=== PATIENT | female | born 1975 | race Caucasian/White ===

== ENCOUNTER 2019-04-14 08:13 | Day surgery (SDC) | payer OTHER, BC ==
[2019-04-14] VITALS (14 sets, daily range): BP systolic 106–123; BP diastolic 57–71; PULSE 52–72; RESP 13–19; Ht 162.6 cm; Wt 72.6 kg
[~2019-04-14] VITALS: Ht 162.6 cm; Wt 72.6 kg
--- NOTE | 2019-04-14 06:57 | HPN ---
Date/Time of Note Date/Time of Note DATE: 04/14/19 TIME: 06:57 Interval H&P Admission Note Pt. seen H&P reviewed: No system changes LILLIE SHAIRF MD Apr 14, 2019 06:57
--- NOTE | 2019-04-14 10:04 | PREAC ---
Date/Time of Note Date/Time of Note DATE: 04/14/19 TIME: 10:04 Anesthesia Eval and Record Evaluation Time Pre-Procedure Interview DATE: 04/14/19 TIME: 10:04 Age 43 Sex female NPO: 8 hrs Preoperative diagnosis cholelithiasis Planned procedure laparoscopic cholecystectomy Past Medical History Past Medical History: None Surgery & Anesthesia Issues No known issue Meds Anticoagulation: No Beta Santos within 24 hr: No Reason Beta Santos not given: Pt. not on B-Santos No Active Prescriptions or Reported Meds Meds reviewed: Yes Allergies Coded Allergies: morphine (Verified Allergy, Unknown, SHORTNESS OF BREATH, 04/14/19) Allergies Reviewed: Yes Labs/Studies Labs Reviewed: Reviewed by anesthesiologist test: Negative Studies: ECG Pre-procedure Exam Last vitals Vital Signs Date Temp Pulse Resp B/P (MAP) Pulse Ox O2 O2 Flow FiO2 Time Delivery Rate 04/14/19 97.3 54 16 117/57 100 Room Air 09:33 (77) Airway: Adequate mouth opening, Adequate thyromental dist Mallampati: Mallampati II Teeth: Normal Lung: Normal Heart: Normal ASA Physical Status ASA physical status: 1 Emergency: None Planned Anesthetic General/MAC: ETT Nerve block: TAP (bilateral) Planned Pain Management Single shot nerve block, Parenteral pain med Pre-operative Attestations Prior to commencing anesthesia and surgery, the patient was re-evaluated, there was verification of: *The patient's identity *The results of appropriate recent lab work and preoperative vital signs *The above evaluation not changing prior to induction *Anesthetic plan, risk benefits, alternative and complications discussed with patient/family; questions answered; patient/family understands, accepts and wishes to proceed. Computer Applications Instructor used ILEANA ONTIVEROS MD Apr 14, 2019 10:04
[2019-04-14] MEDS ORDERED: BUPIVACAINE 0.25%/EPI (SDV) 10 ML INJ ONE (10:07)
[2019-04-14] MEDS ORDERED: FENTAnyl 50 MCG/ML VIAL ONE (10:23)
[2019-04-14] MEDS ORDERED: MIDAZOLAM 1 MG/ML 2 ML INJ ONE (10:23)
[2019-04-14] MEDS ORDERED: ROCURONIUM 50 MG INJ ONE (10:23)
[2019-04-14] MEDS ORDERED: PROPOFOL 20 ML ONE (10:23)
[2019-04-14] MEDS ORDERED: LIDOCAINE 2% (SDV) 5 ML INJ ONE (10:23)
[2019-04-14] MEDS ORDERED: SUCCINYLCHOLINE CHLORIDE 100 MG/5 ML SYG IV ONE (10:23)
[2019-04-14] MEDS ORDERED: ROPIVACAINE 0.5 % 30 ML VIAL ONE (10:26)
[2019-04-14] MEDS ORDERED: ONDANSETRON 4 MG INJ IV PRN ×2 (10:30→11:30)
[2019-04-14] MEDS ORDERED: hydrALAzine 20 MG INJ IV PRN (10:30)
[2019-04-14] MEDS ORDERED: LABETALOL HCL 20MG INJ IV PRN (10:30)
[2019-04-14] MEDS ORDERED: FENTAnyl 50 MCG/ML VIAL IV PRN ×3 (10:30)
[2019-04-14] MEDS ORDERED: DIPHENHYDRAMINE 50 MG INJ IV PRN (10:30)
[2019-04-14] MEDS ORDERED: HYDROmorphONE 1 MG/5 ML IV SYRINGE IV PRN ×3 (10:30)
[2019-04-14] MEDS ORDERED: PROCHLORPERAZINE 10 MG INJ IV PRN (10:30)
[2019-04-14] MEDS ORDERED: MEPERIDINE 25 MG INJ IV PRN (10:30)
[2019-04-14] MEDS ORDERED: OXYCODONE/ACETAMINOPHEN (5/325) TAB PO PRN ×3 (10:30→11:30)
[2019-04-14] MEDS ORDERED: CEFAZOLIN 1 GM INJ ONE (10:42)
[2019-04-14] MEDS ORDERED: DEXAMETHASONE 4 MG/ML 5 ML INJ ONE (10:42)
[2019-04-14] MEDS ORDERED: ONDANSETRON 4 MG INJ ONE (10:42)
[2019-04-14] MEDS ORDERED: FAMOTIDINE 20 MG INJ ONE (10:42)
[2019-04-14] MEDS ORDERED: EPHEDrine 25 MG/5 ML SYG ONE (10:58)
[2019-04-14] MEDS ORDERED: KETOROLAC 30 MG INJ ONE (11:00)
[2019-04-14] MEDS ORDERED: GLYCOPYRROLATE 0.4 MG INJ ONE ×2 (11:01)
[2019-04-14] MEDS ORDERED: NEOSTIGMINE 3 MG/3 ML SYRINGE ONE ×2 (11:01)
[2019-04-14] MEDS ORDERED: SUGAMMADEX SODIUM 200 MG/2 ML VIAL IV ONE (11:03)
--- NOTE | 2019-04-14 11:12 | OPR ---
Date/Time of Note Date/Time of Note DATE: 04/14/19 TIME: 11:08 Operative Report Procedure Date: Apr 14, 2019 Preoperative Diagnosis Gallstones without obstruction Postoperative Diagnosis Gallstones without obstruction Operation/Procedure Performed Laparoscopic cholecystectomy Surgeon Vini Sharif MD Harmonica Maker None Anesthesia Type: general Anesthesiologist: ILEANA ONTIVEROS MD Estimated Blood Loss: minimal Transfusion none Specimen Gallbladder Grafts/Implants none Tubes/Drains None Complications none Pt Condition Post Procedure: stable Disposition: PACU Indications Symptomatic cholelithiasis Procedure Description After satisfactory general endotracheal anesthesia was achieved, the abdomen was prepped and draped in the usual fashion. The abdomen was insufflated with carbon dioxide through an umbilical Veress needle to 15 mmHg pressure. The Veress needle was removed and the umbilical incision extended to 5 mm through which a 5 mm trocar was placed. A 5 mm 0 degree lens was placed. Laparoscopy was entirely unremarkable. The gallbladder was not inflamed. Under direct visualization a 12 mm epigastric trocar was placed as well as 2 more 5 mm right lateral abdominal trochars. The dome of the gallbladder was then grasped and retracted superiorly. The distal gallbladder was grasped and retracted inferolaterally. The hepatoduodenal ligament was carefully dissected between the gallbladder and the well-visualized common duct. The cystic duct was dissected circumferentially then triply hemoclipped and divided high at the junction of the gallbladder and cystic duct. Cystic arteries identified immediately posteriorly this was triply hemoclipped and divided between clips. The gallbladder was then dissected from below using electrocautery dissection and placed fully intact into an Endo Catch removed by the epigastric route. Hemostasis of the liver bed was total and irrigant returned clear. The abdomen was then desufflated and all trochars were removed. The fascia of the epigastrium was closed with 2 sutures of 0 Vicryl. The skin punctures were infiltrated with 30 cc of 0.25% Marcaine with epinephrine and closed with [place]. Sponge and needle counts were reported as correct x2. VINI SHARIF MD Apr 14, 2019 11:12
--- NOTE | 2019-04-14 11:19 | PAC ---
Date/Time of Note Date/Time of Note DATE: 04/14/19 TIME: 11:18 Post-Anesthesia Notes Post-Anesthesia Note Last documented vital signs Vital Signs Date Temp Pulse Resp B/P (MAP) Pulse Ox O2 O2 Flow FiO2 Time Delivery Rate 04/14/19 97.3 54 16 117/57 100 Room Air 09:33 (77) Activity: WNL Respiratory function: WNL Cardiovascular function: WNL Mental status: Baseline Pain reasonably controlled: Yes Hydration appropriate: Yes Nausea/Vomiting absent: Yes Comments BP: 121/66 HR: 77 RR: 15 T: 98 SaO2: 98.9 ILEANA ONTIVEROS MD Apr 14, 2019 11:19
[2019-04-14] MEDS ORDERED: morphine 2 MG INJ IV PRN (11:30)
== END 2019-04-14 14:35 | disposition home or self-care (01) ==
LOC: SDS 08:13
PROVIDERS: ATTEND Surgery
DX: K80.10 Calculus of gallbladder with chronic cholecystitis without obstruction (principal)
CPT/HCPCS: 47562; J0690; J1100; J1170; J1885; J2250; J2405; J2710; J2795; J3010; 84703; 88304